=== PATIENT | male | born 1950 ===

== ENCOUNTER 2023-03-24 05:30 | Day surgery (SDC) | payer OTHER ==
[~2023-03-24] VITALS: Ht 167.6 cm; Wt 74.4 kg
[~2023-03-24 05:30] MED LIST: ARICEPT5 MG PO; ATORVASTATIN CA80 MG PO; HORIZANT300 MG PO; METFORMIN HCL500 M3 PO; PROTONIX40 MG PO; TOPROL XL50 M1 PO
[2023-03-24] MEDS ORDERED: PERCOCET 5-3251 EACH PO (09:33)
[2023-03-24] MEDS ORDERED: RECTICARE30 GM TOP (09:34)
== END 2023-03-24 15:45 | disposition home or self-care (01) ==
LOC: CIR.AMB 05:30
PROVIDERS: ATTEND Surgery
DX: K62.0 Anal polyp (principal); K62.1 Rectal polyp; K64.4 Residual hemorrhoidal skin tags; K64.8 Other hemorrhoids; K92.2 Gastrointestinal hemorrhage, unspecified; R19.5 Other fecal abnormalities; R19.7 Diarrhea, unspecified; I10 Essential (primary) hypertension; Z20.822 Contact with and (suspected) exposure to COVID-19; E78.5 Hyperlipidemia, unspecified